=== PATIENT | male | born 1970 | race Caucasian/White ===

== ENCOUNTER 2021-12-21 15:28 | Inpatient (IN) | payer BC ==
[~2021-12-21 15:28] MED LIST: Iopamidol-370 76% 500 ML 1 ML ONE
[2021-12-21 16:24] LABS: #Lymphocytes 1.1 thou/uL (1.20-3.40); #Monocytes 0.3 thou/uL (0.11-0.59); #Neutrophils 2.3 thou/uL (1.40-6.50); %Basophils 0.8 % (0.0-1.0); %Lymphocytes 28.7 % (21.0-51.0); %Monocytes 8.3 % (0.0-10.0); %Neutrophils 61.2 % (42.0-75.0); Hemoglobin 16.3 g/dL (14.0-18.0); Mean Corpuscular Hemoglobin 37.2 pg (27.0-31.0); Mean Platelet Volume 7.3 fL (7.4-10.4); Platelet Count 253 thou/uL (130-400); RBC Distribution Width 11.6 % (11.5-14.5); Red Blood Cell (RBC) Count 4.38 mill/uL (4.70-6.10); White Blood Cell (WBC) Count 3.8 thou/uL (4.8-10.8)
[2021-12-21 16:43] LABS: ALT (SGPT) 21 U/L (8-55); AST (SGOT) 27 U/L (5-34); Albumin 4.4 g/dL (3.5-5.0); Alkaline Phosphatase 57 U/L (40-110); Anion Gap 14 mmol/L (10-20); BUN (Urea Nitrogen) 14 mg/dL (8.4-25.7); Bilirubin, Total 0.8 mg/dL (0.2-1.2); Calc. Creatinine Clearance 0 mL/min (70-130); Calcium 9.6 mg/dL (7.8-10.44); Carbon Dioxide 24 mmol/L (22-29); Chloride 102 mmol/L (98-107); Estimated GFR 88; Globulin 3.1 g/dL (2.4-3.5); Glucose 297 mg/dL (70-105); Potassium 3.8 mmol/L (3.5-5.1); Protein, Total 7.5 g/dL (6.0-8.3); Sodium 136 mmol/L (136-145)
[2021-12-21 16:48] LABS: MDiff Complete? YES; Macrocytosis SLIGHT = 6-15 cells (100X) (0-5/hpf); Platelet Morphology Comment Appears Adequate
[2021-12-21 17:08] LABS: CKMB 2.8 ng/mL (0-6.6)
[2021-12-21] MEDS ORDERED: Magnesium 2 GM/50 ML BAG (IN WATER) ONE (18:30)
[2021-12-21] MEDS ORDERED: Lorazepam 2 MG/ML VIAL ONE (18:40)
[2021-12-21 18:56] LABS: Magnesium 1.7 mg/dL (1.6-2.6)
[2021-12-21] MEDS ORDERED: Dextrose 50% Abboject 50 ML SYRINGE SLOW IVP PRN (20:34)
[2021-12-21] MEDS ORDERED: Dextrose 5% in Water 1,000 ML IV PRN (20:34)
[2021-12-21] MEDS ORDERED: Enoxaparin Sodium 80 MG/0.8 ML SYRINGE SC SCH (20:39)
[2021-12-21] MEDS ORDERED: Ondansetron ODT 4 MG TAB PO PRN (20:46)
[2021-12-21] MEDS ORDERED: Ondansetron PF 4 MG/2 ML Vial IVP PRN (20:46)
[2021-12-21] MEDS ORDERED: Senokot S 8.6-50 MG TAB PO PRN (20:46)
[2021-12-21] MEDS ORDERED: Lorazepam 2 MG/ML VIAL IM PRN (20:53)
[2021-12-21] MEDS ORDERED: Lorazepam 1 MG TAB PO PRN (20:53)
[2021-12-21] MEDS ORDERED: Nitroglycerin 0.4 MG TAB (25 Tab Bottle) SL PRN (20:58)
[2021-12-21] MEDS ORDERED: Electrolyte Replacement Protocol 1 EACH FS SCH (21:00)
[2021-12-21 21:05] VITALS: BMI 24.7
[2021-12-21] MEDS ORDERED: Enoxaparin Sodium 80 MG/0.8 ML SYRINGE ONE (21:14)
[2021-12-21] MEDS ORDERED: Diltiazem 125 MG/25 ML ONE (21:14)
[2021-12-21] MEDS: Sodium Chloride 0.9% 1,000 ML IV SCH (21:45)
[2021-12-21 22:04] LABS: CKMB 2.2 ng/mL (0-6.6)
[2021-12-21] MEDS ORDERED: Diltiazem 125 MG in Sodium Chloride 0.9% 100 ML IVPB SCH (23:00)
[2021-12-22 00:16] LABS: CKMB 2.1 ng/mL (0-6.6)
[2021-12-22 05:05] LABS: #Eosinphils 0.1 thou/uL (0.0-0.7); #Lymphocytes 1.6 thou/uL (1.20-3.40); #Monocytes 0.4 thou/uL (0.11-0.59); #Neutrophils 3.1 thou/uL (1.40-6.50); %Basophils 0.7 % (0.0-1.0); %Eosinophils 1.6 % (0.0-10.0); %Lymphocytes 31.3 % (21.0-51.0); %Monocytes 7.1 % (0.0-10.0); %Neutrophils 59.3 % (42.0-75.0); Hemoglobin 16.5 g/dL (14.0-18.0); Mean Corpuscular Hemoglobin 37.2 pg (27.0-31.0); Mean Platelet Volume 7.5 fL (7.4-10.4); Platelet Count 232 thou/uL (130-400); RBC Distribution Width 11.5 % (11.5-14.5); Red Blood Cell (RBC) Count 4.44 mill/uL (4.70-6.10); White Blood Cell (WBC) Count 5.2 thou/uL (4.8-10.8)
[2021-12-22 05:24] LABS: Hemoglobin A1c 9.7 % (4.0-6.0)
[2021-12-22] MEDS ORDERED: HumaLOG 300 UNITS/3 ML VIAL ONE (06:35)
[2021-12-22] MEDS: HumaLOG 300 UNITS/3 ML VIAL SC PRN ×4 (06:44→20:31)
[2021-12-22 07:22] LABS: Anion Gap 15 mmol/L (10-20); BUN (Urea Nitrogen) 12 mg/dL (8.4-25.7); Calc. Creatinine Clearance 124 mL/min (70-130); Calcium 8.7 mg/dL (7.8-10.44); Carbon Dioxide 21 mmol/L (22-29); Cardiac Risk 5.3 (Less than 4.5); Chloride 101 mmol/L (98-107); Cholesterol 219 mg/dl (< 200 Desired); Estimated GFR 107; Glucose 272 mg/dL (70-105); HDL Cholesterol 41 mg/dL (>60 Neg Risk); Phosphorus 2.7 mg/dL (2.3-4.7); Potassium 3.8 mmol/L (3.5-5.1); Sodium 133 mmol/L (136-145); Triglycerides 477 mg/dL (Less than 150)
[2021-12-22 07:36] LABS: LDL Cholesterol, Calculated 83 mg/dL
[2021-12-22 08:16] LABS: SARS-CoV-2 NAA Rapid Test Not Detected (NotDetected)
[2021-12-22] MEDS ORDERED: Diltiazem 125 MG/25 ML ONE (08:39)
[2021-12-22] MEDS ORDERED: Enoxaparin Sodium 80 MG/0.8 ML SYRINGE ONE (08:48)
[2021-12-22] MEDS ORDERED: Folic Acid 1 MG TAB ONE (08:48)
[2021-12-22] MEDS: Enoxaparin Sodium 80 MG/0.8 ML SYRINGE SC SCH ×2 (08:56→20:31)
[2021-12-22] MEDS: Multivit, Therapeutic 1 TAB PO SCH (08:56)
[2021-12-22] MEDS: Folic Acid 1 MG TAB PO SCH (08:56)
[2021-12-22] MEDS ORDERED: Amlodipine 5 mg/Benazepril 10 mg CAP PO SCH (09:00)
[2021-12-22] MEDS ORDERED: Magnesium 2 GM/50 ML(in water) 2 GM in Premix Bag 1 BAG IVPB SCH (10:00)
[2021-12-22] MEDS ORDERED: Magnesium 2 GM/50 ML BAG (IN WATER) ONE (10:27)
[2021-12-22] MEDS: Sodium Chloride 0.9% 1,000 ML IV SCH (10:33)
[2021-12-22] MEDS ORDERED: Empagliflozin 10 MG TAB PO SCH (17:30)
[2021-12-22] MEDS: Atorvastatin Calcium 40 MG TAB PO SCH (20:31)
[2021-12-22] MEDS: Acetaminophen 325 MG TAB PO PRN (20:54)
[2021-12-22] MEDS ORDERED: Atorvastatin Calcium 10 MG TAB PO SCH (21:00)
[2021-12-23 05:15] LABS: #Eosinphils 0.1 thou/uL (0.0-0.7); #Lymphocytes 1.3 thou/uL (1.20-3.40); #Monocytes 0.4 thou/uL (0.11-0.59); #Neutrophils 3.2 thou/uL (1.40-6.50); %Basophils 0.9 % (0.0-1.0); %Eosinophils 1.8 % (0.0-10.0); %Lymphocytes 25.6 % (21.0-51.0); %Monocytes 7.1 % (0.0-10.0); %Neutrophils 64.6 % (42.0-75.0); Hemoglobin 18.7 g/dL (14.0-18.0); Mean Corpuscular HGB CONC 34.4 g/dL (32.0-36.0); Mean Corpuscular Hemoglobin 37.1 pg (27.0-31.0); Mean Platelet Volume 7.3 fL (7.4-10.4); Platelet Count 257 thou/uL (130-400); RBC Distribution Width 11.6 % (11.5-14.5); Red Blood Cell (RBC) Count 5.04 mill/uL (4.70-6.10); White Blood Cell (WBC) Count 4.9 thou/uL (4.8-10.8)
[2021-12-23 05:29] LABS: Anion Gap 17 mmol/L (10-20); BUN (Urea Nitrogen) 12 mg/dL (8.4-25.7); Calc. Creatinine Clearance 92 mL/min (70-130); Calcium 9.7 mg/dL (7.8-10.44); Carbon Dioxide 23 mmol/L (22-29); Chloride 104 mmol/L (98-107); Estimated GFR 84; Glucose 171 mg/dL (70-105); Potassium 4.6 mmol/L (3.5-5.1); Sodium 139 mmol/L (136-145)
[2021-12-23] MEDS: HumaLOG 300 UNITS/3 ML VIAL SC PRN ×4 (06:22→19:51)
[2021-12-23] MEDS: Multivit, Therapeutic 1 TAB PO SCH (08:46)
[2021-12-23] MEDS: Enoxaparin Sodium 80 MG/0.8 ML SYRINGE SC SCH ×2 (08:46→19:51)
[2021-12-23] MEDS: Empagliflozin 10 MG TAB PO SCH (08:47)
[2021-12-23] MEDS: Folic Acid 1 MG TAB PO SCH (08:47)
[2021-12-23] MEDS: Atorvastatin Calcium 40 MG TAB PO SCH (19:51)
[2021-12-24] MEDS: HumaLOG 300 UNITS/3 ML VIAL SC PRN ×4 (06:12→20:08)
[2021-12-24] MEDS: Multivit, Therapeutic 1 TAB PO SCH (09:14)
[2021-12-24] MEDS: Enoxaparin Sodium 80 MG/0.8 ML SYRINGE SC SCH (09:14)
[2021-12-24] MEDS: Empagliflozin 10 MG TAB PO SCH (09:14)
[2021-12-24] MEDS: Folic Acid 1 MG TAB PO SCH (09:14)
[2021-12-24] MEDS: Acetaminophen 325 MG TAB PO PRN (09:15)
[2021-12-24] MEDS: traMADol HCl 50 MG TAB PO PRN ×2 (11:26→22:52)
[2021-12-24] MEDS ORDERED: Magnesium 2 GM/50 ML(in water) 2 GM in Premix Bag 1 BAG IVPB SCH (13:15)
[2021-12-24] MEDS: Atorvastatin Calcium 40 MG TAB PO SCH (20:07)
[2021-12-24] MEDS: Apixaban 5 MG TAB PO SCH (20:07)
[2021-12-24] MEDS: Thiamine 100 MG TAB PO SCH (20:08)
[2021-12-25 06:12] LABS: Magnesium 2.2 mg/dL (1.6-2.6)
[2021-12-25] MEDS: HumaLOG 300 UNITS/3 ML VIAL SC PRN ×3 (06:19→17:26)
[2021-12-25] MEDS: Empagliflozin 10 MG TAB PO SCH (09:03)
[2021-12-25] MEDS: Folic Acid 1 MG TAB PO SCH (09:03)
[2021-12-25] MEDS: Apixaban 5 MG TAB PO SCH ×2 (09:03→20:57)
[2021-12-25] MEDS: Multivit, Therapeutic 1 TAB PO SCH (09:03)
[2021-12-25] MEDS: Atorvastatin Calcium 40 MG TAB PO SCH (20:57)
[2021-12-25] MEDS: Thiamine 100 MG TAB PO SCH (20:57)
[2021-12-26 05:05] LABS: #Eosinphils 0.1 thou/uL (0.0-0.7); #Lymphocytes 1.5 thou/uL (1.20-3.40); #Monocytes 0.6 thou/uL (0.11-0.59); #Neutrophils 2.8 thou/uL (1.40-6.50); %Basophils 0.8 % (0.0-1.0); %Eosinophils 1.6 % (0.0-10.0); %Lymphocytes 29.7 % (21.0-51.0); %Monocytes 11.2 % (0.0-10.0); %Neutrophils 56.8 % (42.0-75.0); Hemoglobin 18.3 g/dL (14.0-18.0); Mean Corpuscular HGB CONC 34.5 g/dL (32.0-36.0); Mean Corpuscular Hemoglobin 37.2 pg (27.0-31.0); Mean Platelet Volume 7.5 fL (7.4-10.4); Platelet Count 245 thou/uL (130-400); RBC Distribution Width 11.6 % (11.5-14.5); Red Blood Cell (RBC) Count 4.91 mill/uL (4.70-6.10); White Blood Cell (WBC) Count 4.9 thou/uL (4.8-10.8)
[2021-12-26 05:23] LABS: Anion Gap 13 mmol/L (10-20); BUN (Urea Nitrogen) 23 mg/dL (8.4-25.7); Calc. Creatinine Clearance 82 mL/min (70-130); Calcium 9.5 mg/dL (7.8-10.44); Carbon Dioxide 26 mmol/L (22-29); Chloride 104 mmol/L (98-107); Estimated GFR 73; Glucose 171 mg/dL (70-105); Potassium 4.5 mmol/L (3.5-5.1); Sodium 138 mmol/L (136-145)
[2021-12-26] MEDS: HumaLOG 300 UNITS/3 ML VIAL SC PRN ×2 (05:38→12:10)
[2021-12-26] MEDS: Apixaban 5 MG TAB PO SCH (08:54)
[2021-12-26] MEDS: Empagliflozin 10 MG TAB PO SCH (08:54)
[2021-12-26] MEDS: Multivit, Therapeutic 1 TAB PO SCH (08:54)
[2021-12-26] MEDS: Folic Acid 1 MG TAB PO SCH (08:54)
[2021-12-26 12:00] VITALS: BP 103/62; TEMP 98.3
== END 2021-12-26 16:08 | disposition home or self-care (01) | DRG 314 ==
LOC: ERS 15:28 → ERHOLD 20:15 → NEURO 12-22 14:56
PROVIDERS: ADMIT Student in an Organized Health Care Education/Training Program; ATTEND Internal Medicine
DX: I42.6 Alcoholic cardiomyopathy (principal); I26.99 Other pulmonary embolism without acute cor pulmonale; I50.21 Acute systolic (congestive) heart failure; I48.19 Other persistent atrial fibrillation; I11.0 Hypertensive heart disease with heart failure; E11.9 Type 2 diabetes mellitus without complications; E78.5 Hyperlipidemia, unspecified; E83.119 Hemochromatosis, unspecified; R77.8 Other specified abnormalities of plasma proteins; R79.89 Other specified abnormal findings of blood chemistry; F10.20 Alcohol dependence, uncomplicated; Z98.890 Other specified postprocedural states; Z79.899 Other long term (current) drug therapy; Z79.84 Long term (current) use of oral hypoglycemic drugs; Z20.822 Contact with and (suspected) exposure to COVID-19
CPT/HCPCS: 36415; 36416; 71045; 71275; 80048; 80053; 80061; 82553; 83036; 83735; 83880; 84100; 84443; 84484; 85025; 85379; 90471; 90732; 93005; 93306; 93798; 94760; 96365; 96375; 97139; G0009; J1650; J1815; J2060; J3475; J3490; J7050; Q9967; U0002

== ENCOUNTER 2022-04-20 07:39 | Outpatient (CLI) | payer BC ==
[2022-04-20 08:40] LABS: Hemoglobin 14.9 g/dL (13.5-17.5); Mean Corpuscular Hemoglobin 38.2 pg (27.0-33.0); Mean Corpuscular Volume 103.3 fl (81.2-95.1); Mean Platelet Volume 9.8 fl (7.4-10.4); Platelet Count 210 10x3/uL (150-450); RBC Distribution Width 12.7 % (11.5-14.5)
[2022-04-20 08:46] LABS: PTT 27.1 sec (22.0-33.0); Prothrombin Time 10.9 sec (9.5-12.1)
[2022-04-20 08:50] LABS: Anion Gap 15 mmol/L (10-20); BUN (Urea Nitrogen) 22 mg/dL (8.4-25.7); Calc. Creatinine Clearance 0 mL/min (70-130); Calcium 9.4 mg/dL (7.8-10.44); Carbon Dioxide 23 mmol/L (22-29); Chloride 106 mmol/L (98-107); Estimated GFR 79; Glucose 153 mg/dL (70-105); Potassium 4.1 mmol/L (3.5-5.1); Sodium 140 mmol/L (136-145)
== END 2022-04-20 07:40 | disposition home or self-care (01) ==
LOC: LABBT 07:39
PROVIDERS: ATTEND Internal Medicine Cardiovascular Disease
DX: Z01.812 Encounter for preprocedural laboratory examination (principal); I48.19 Other persistent atrial fibrillation
CPT/HCPCS: 80048; 85027; 85610; 85730